=== PATIENT | male | born 1950 | race Caucasian/White ===

== ENCOUNTER → 2016-05-18 | Outpatient (CLI) | payer MEDICARE, OTHER ==
--- NOTE | 2016-05-22 09:03 | SLEEPCENT ---
DATE OF PROCEDURE: 05/18/2016 ORDERED BY: David Bender DO Nocturnal polysomnography was performed for the titration of pressure therapy in this patient with severe obstructive sleep apnea syndrome, apnea hypopnea index of 42.9, showing signs of pulmonary hypertension. Testing was performed in a recliner chair per the patient's request. For testing, a Respironics Comfort Gel nasal mask of petite size was used. An initial pressure of 10 cm of water was applied to the circuit and the lights were extinguished. 7 hours and 9 minutes of data were reviewed. There were 216 minutes of sleep identified. Sleep latency was mildly prolonged at 25 minutes. Rapid eye movement (REM) latency was more so prolonged at 210 minutes. Sleep architecture improved with optimal pressure therapy. Overall sleep efficiency was reduced by periods of wake around 1 and 3 a.m. to 51.4%. The patient's electrocardiogram (EKG) showed a sinus rhythm with an average heart rate of 80 beats per minute. Heart rate variability between 70 and 100 beats per minute was seen. Electroencephalogram (EEG) showed some coarsening in non REM stages. Respiratory events prompted changes in pressure therapy and obstructive events were reasonably palliated at pressures of 8-9. Hypoventilatory oxygen desaturations prompted the addition of supplemental oxygen and best sleep was seen on a CPAP pressure of 9 with 2 liters of oxygen bled through the system to maintain adequate saturations. CPAP tolerance was reasonably good. IMPRESSION: Obstructive sleep apnea syndrome (G47.33). RECOMMENDATION: Nightly use of pressure therapy 9 cm of water with 2 liters of oxygen bled through the system to address desaturations.
== END ==
LOC: M SLEEP 19:45
PROVIDERS: ATTEND Internal Medicine Pulmonary Disease
DX: G47.33 Obstructive sleep apnea (adult) (pediatric) (principal)

== ENCOUNTER → 2016-09-17 | Outpatient (REF) | payer MEDICARE, OTHER | LOC: M LAB REF 17:14 | PROVIDERS: ATTEND Internal Medicine Pulmonary Disease | DX: J44.1 Chronic obstructive pulmonary disease with (acute) exacerbation (principal) ==

== ENCOUNTER → 2017-12-24 | Outpatient (CLI) | payer MEDICARE, OTHER | LOC: M RAD 15:18 | DX: R60.0 Localized edema (principal) | CPT/HCPCS: 93970 ==